=== PATIENT | female | born 1985 | race Hispanic/Latino ===

== ENCOUNTER 2016-03-16 13:08 | Emergency (ER) | payer OTHER ==
[~2016-03-16] VITALS: Ht 162.6 cm; Wt 56.8 kg
[2016-03-16 13:12] VITALS: BP 101/65; PULSE 82; RESP 16; O2SAT 98
--- NOTE | 2016-03-16 13:55 | ED.REPORT ---
HPI-Preg Under 20 Weeks Date of Service Mar 16, 2016 ED Provider: Deion Godfrey MD Pt is a 6 week 30 y/o female presenting to the ED c/o lower abdominal cramping onset this morning. She c/o associated nausea, mild vaginal spotting ( less than a period), mild brown vaginal discharge. She denies fever, vomiting. Her last occurred although she had a tubal ligation and this time she became while using the Nuva Ring. This is her 4th . Her prior deliveries were uncomplicated. She has no abdominal surgeries. Nursing Notes Stated Complaint: POSSIBLY , CRAMPING & SPOTTING Chief Complaint: & Delivery Nursing Notes Reviewed: Yes Allergies: Coded Allergies: No Known Allergies (Verified Allergy, Unknown, 03/16/16) No Active Prescriptions or Reported Meds General Time Seen by Provider: 13:58 Chief Complaint Abdominal cramping Context: : Known 1st trim Hx Obtained From: Patient Arrived By: Walk-in Onset Occurred: 5 - 8 hours ago Symptom Duration: Since onset Progression Since Onset: Unchanged Location: : Abdomen lower Quality: Cramping Severity: Current: Mild Severity: Maximum: Mild Past Medical History Past Medical History , healthy Past Surgical History None Smoking History Never Smoker Social History Alcohol Use: Denies alcohol use Drug Use: Denies drug use Ambulatory Status Independent Review of Systems Constitutional: Denies: Chills, Fever GI: Reports: Abdominal pain, Nausea, Denies: Vomiting Female: Reports: Vaginal bleeding - abnl, Vaginal discharge Complete sys rev & neg: except as marked. Physical Exam Initial Vital Signs Vital Signs (First) Date Time Temp Pulse Resp B/P Pulse Ox O2 Delivery O2 Flow Rate FiO2 03/16/16 13:12 36.9 82 16 101/65 98 Room Air Initial VS: Reviewed, Vital signs normal Head / Eyes: Atraumatic, Normocephalic, PERRL ENT: Mucous membranes moist, Conjunctiva normal, No scleral icterus Neck: Supple, Full range of motion Respiratory: Breath sounds normal, Clear to auscultation, No respiratory distress Cardiovascular: Regular rate & rhythm, Heart sounds normal, Intact distal pulses Extremities: Vascular intact, Neuro intact, No swelling, No tenderness Skin: Warm, Dry, No cyanosis Neurologic: Alert, Oriented, Nonfocal Psychiatric: Mood/affect normal, Behavior normal, Normal thought content General/Constitutional: Awake, Alert, No acute distress, Cooperative, Not toxic appearing Abdomen: Atraumatic, Soft, No guarding, No rebound, No distention, No palpable mass Tenderness/Guarding/Rebound: Positive: Tender suprapubic (very mild) Female Genitourinary: Exam deferred Interpretation & Diagnostics Lab Results Interpretation Result Diagram: 03/16/16 1316 03/16/16 1316 Test 03/16/16 13:16 03/16/16 13:29 03/16/16 13:59 03/16/16 14:14 White Blood Count 7.3th/mm3 (3.8-10.1) Red Blood Count 4.15mil/mm3 (3.90-5.20) Hemoglobin 12.6g/dL (12.0-15.6) Hematocrit 36.7% (35.0-46.0) Mean Corpuscular Volume 88.4fL (81-100) Mean Corpuscular Hemoglobin 30.4pg (27.0-35.0) Mean Corpuscular Hemoglobin Concent 34.3% (32.0-37.0) Red Cell Distribution Width 12.5% (12.3-15.4) Platelet Count 199bil/L (150-400) Sodium Level 137mEq/L (134-144) Potassium Level 3.8mEq/L (3.5-5.2) Chloride Level 102mEq/L (97-108) Carbon Dioxide Level 21mmol/L (18-29) Blood Urea Nitrogen 11mg/dL (6-20) Creatinine 0.46mg/dL (0.57-1.00) Estimat Glomerular Filtration Rate 225mL/min (>59) Glucose Level 100mg/dL (60-99) Calcium Level 8.5mg/dL (8.5-10.1) Total Bilirubin 0.2mg/dL (0.0-1.2) Aspartate Amino Transf (AST/SGOT) 15U/L (0-50) Alanine Aminotransferase (ALT/SGPT) 10U/L (0-32) Alkaline Phosphatase 45U/L (25-150) Total Protein 6.5g/dL (6.4-8.4) Albumin 3.7g/dL (3.4-5.0) HCG Beta Subunit 66224cMP/mL Hold Urine Received (Received) Urine Color Yellow (YELLOW) Urine Appearance Hazy (CLEAR,HAZY) Urine pH 7.0 (5.0-8.0) Urine Specific [place] 1.020 (1.003-1.035) Urine Protein Negativemg/dL (NEG,TRACE) Urine Glucose (UA) Negativemg/dL (NEGATIVE) Urine Ketones Negativemg/dL (NEGATIVE) Urine Occult Blood Negative (NEGATIVE) Urine Nitrite Negative (NEGATIVE) Urine Bilirubin Negative (NEGATIVE) Urine Urobilinogen Normalmg/dL (NORMAL) Urine Leukocyte Esterase Negative (NEGATIVE) Urine RBC 0-2/hpf (0-2) Urine WBC 0-5/hpf (0-5) Urine Epithelial Cells Occasional/hpf (NONE-MOD) Urine Crystals None seen (NONE SEEN) Urine Bacteria Few/hpf (NONE-FEW) Urine Hyaline Casts None/lpf (NONE) Urine Granular Casts None seen (NONE SEEN) Urine Waxy Casts None seen (NONE SEEN) Urine Red Blood Cell Casts None seen (NONE SEEN) Urine White Blood Cell Casts None seen (NONE SEEN) Urine Mucus None seen (None Seen) Urine Trichomonas None seen (NONE SEEN) Urine Yeast None (NONE SEEN) Urinalysis Comment None Urine Culture Reflexed Not indicated Hold Quevedo Top Tube Received (Received) US Focused OB IMPRESSION: 7 week 6 day single living intrauterine gestation. Dictated by: Kelechi Walker RRA Interpreted: Chayito Naylor MD on 03/16/2016 at 16:27 Transcribed by: NELLIE on 03/16/2016 at 16:28 Exam Performed by: Allied health pract Exam Type: Diagnostic Exam Interpreted by: Radiologist Re-Eval/Medical Decision Med Decision/Clinical Course 30-year-old tubal 1, presents about six weeks with some crampy discomfort and spotty bleeding. Her hCG is 84,000, sufficient for ultrasound examination, and she proves to have an IUP without any abnormality noted. There is no evidence of ectopic at this time. Her bleeding is fairly minimal at worst. She is discharged now for follow-up with her OB provider. Rest, pelvic rest, hydration discussed. Re-Evaluation/Progress : Time of Eval: 16:52 Re-Evaluation/Progress Note: Pt rechecked. Discussed lab and imaging results and possibility for misscarriage to still occur. Informed pt of plan for treatment. Pt understands and agrees with plan for treatment. F/U instructions and RTER warnings given. All questions addressed. Counseled Regarding: Diagnosis, Lab results, Need for follow-up, When/why to return to ED Discharge & Departure Primary Impression: Threatened miscarriage Disposition: Home Discharge Condition All VS Reviewed: Yes Condition: Stable Patient Instructions: Threatened Miscarriage (ED) Additional Instructions: The appears normal at this point. This is no guarantee that things will remain so, but there is no evidence of ectopic , and no abnormality seen. Bleeding early in is actually quite common, and does not necessarily mean you are going to lose the . Drink plenty of fluids and stay hydrated. Rest as much as possible, and pelvic rest for the next 10-14 days, the no sex, no tampons or douches. Follow-up with your doctor in your OB practitioner. Return if heavy bleeding or other new symptoms occur. Referrals: Neal Avilez MD (PCP) Scribe Attestation Portions of this note were transcribed by Dre Farris. I, Dr. Godfrey personally performed the history, physical exam and medical decision-making; I reviewed and confirmed the accuracy of the information in the transcribed note. Signed by Anthony Perla, 03/16/16 - 1413 copies to: Neal Avilez MD, Christopher W MD Mar 16, 2016 13:55 DRE FARRIS Mar 16, 2016 14:00
[2016-03-16 14:18] LABS: Mean Corpuscular Hemoglobin 30.4 pg (27.0-35.0); Mean Corpuscular Volume 88.4 fL (81-100)
[2016-03-16 14:23] LABS: APPEARANCE,URINE HAZY (CLEAR,HAZY); COLOR,URINE YELLOW (YELLOW); OCCULT BLOOD,URINE NEGATIVE (NEGATIVE); UROBILINOGEN,URINE NORMAL (NORMAL)
--- NOTE | 2016-03-16 16:28 | DRSVH ---
PROCEDURE: US OB<14 WKS+OB TRANSVAG INDICATIONS: 84k hcg, prior ectopic OUTSIDE/PRIOR DATING DATA: Last menstrual period (LMP): 01/27/16. LMP-based estimated date of delivery (SONYA): 11/02/16. First dating scan (date and location): 03/16/16. Estimated date of delivery (SONYA) from first dating scan: 10/27/16. TECHNIQUE: Real-time scanning was performed of the fetus and maternal pelvic organs, with image documentation. Endovaginal scanning was also performed to better visualize the fetus and maternal ovaries. COMPARISON: None. FINDINGS: Embryo: OB-VEHICLE TECHNICIAN Ultrasound Procedure Report Early Gestation [facility] [place] Rump Length: 1.55 cm Gestational Age (CRL): 7 weeks, 6 days Summary Fetus Summary Heart Rate: 163 bpm Comments: A normal yolk sac is noted. No perigestational bleeds. Measurement variability in dating: +/- 4 weeks by LMP, +/- 7 days by mean sac diameter (use before 6 weeks gestation if crown-rump length not able to be measured), +/- 5 days by crown-rump length (6-12 weeks gestation). Maternal organs: Ovaries within normal limits and no adnexal masses seen. Limited images through th e kidneys demonstrate no hydronephrosis. IMPRESSION: 7 week 6 day single living intrauterine gestation. Dictated by: Kelechi Walker RRA Interpreted: Chayito Naylor MD on 03/16/2016 at 16:27 Transcribed by: NELLIE on 03/16/2016 at 16:28 Approved by: Chayito Naylor MD, PhD on 03/16/2016 at 17:26
== END 2016-03-16 16:54 | disposition home or self-care (01) ==
LOC: SED 13:08
DX: O20.0 Threatened abortion (principal); Z3A.01 Less than 8 weeks gestation of pregnancy

== ENCOUNTER 2016-10-20 09:00 | Inpatient (IN) | payer OTHER ==
[~2016-10-20] VITALS: Ht 162.6 cm; Wt 63.5 kg
[2016-10-20] MEDS: Lactated Ringer's 1,000 ML IV SCH ×2 (09:23→17:23)
[2016-10-20] MEDS ORDERED: Methylergonovine 0.2 mg/mL Inj IM PRN ×2 (09:25)
[2016-10-20] MEDS ORDERED: Benzocaine (Dermoplast) 20% 60 Gm Spray TOPICAL PRN (09:25)
[2016-10-20] MEDS ORDERED: Hemorrhage Kit, Post Partum XX ONE ×2 (09:25)
[2016-10-20] MEDS ORDERED: Measles-Mumps-Rubella Vaccine 0.5 mL Inj SUBQ ONE (09:25)
[2016-10-20] MEDS ORDERED: Carboprost 250 mCg/mL Inj IM PRN ×2 (09:25)
[2016-10-20] MEDS ORDERED: LANOlin HPA 7 Gm Ointment TOPICAL PRN (09:25)
[2016-10-20] MEDS ORDERED: Oxytocin 10 Unit/mL Inj IM PRN ×2 (09:25)
[2016-10-20] MEDS ORDERED: Witch Hazel-Glycerin Pads TOPICAL PRN (09:25)
--- NOTE | 2016-10-20 09:35 | PCM.HPOB ---
Subjective Date of Service: Oct 20, 2016 Referring Provider: Admitting Physician: Luis Manuel Greene MD Primary Care Physician: Neal Avilez MD Attending Physician: Luis Manuel Greene MD Chief Complaint Active labor, SROM History of Present History of Present Illness Patient is a 31 y.o. F at 39 weeks SONYA [facility] and contractions. At initial assessment patient noted to be in active labor at complete dilation, 100 % effacement. Patient transferred to room and began pushing with contractions. Past Medical History Obstetrical History: one spontaneous Three previous pregnancies delivered Histotry of UTI in GBS negative Rubella non immune Gynecologic History: UTI in pregnancuy Hep C neg Hep B no History of STI Medical History: History of pyelonephritis UTI in Surgical History: No past surgeries Social History: Lives with and children No history of drug use No tobacco use No alcohol use Hx Tobacco Use: No Smoking Status: Never Smoker Hx Alcohol Use: No Hx Substance Use: No Past Family History Family History No family history of cancer or heart disease Genetic Screening/Counseling Genetic Screening/Counseling: Negative Review of Systems Constitutional: Y: Change of appitite Eyes: Denies: Blurred Vision Cardiovascular: Denies: Chest Pain, Edema, Palpitations Respiratory: Denies: Cough, Pleuritic Chest Pain Gastrointestinal: Denies: Abdominal Pain Genitourinary: Denies: Dysuria, Hematuria Musculoskeletal: Denies: Redness Skin: Denies: Bruising, Jaundice Psychologic: Denies: Agitation Medications Home medications vitamins Allergy Coded Allergies: No Known Allergies (Verified Allergy, Unknown, 03/16/16) Exam Vital Signs Exam Category 1 tracing FHR 146-160 Good accelerations with contractions Constitutional: Well-developed, Well-nourished, Normal habitus HEENT: Atraumatic, PERRLA, EOMI Lungs: Clear to Auscultation, Normal Air Movement Heart: Regular Rate/Rhythm, Normal S1, Normal S2, No Murmurs/Rubs/Gallops Fundus consistent with gestational age Abdomen: Gravid Extremities: Pulses Palpable x4, Warm Neurological/Psychiatric: Alert, Oriented X3 Neuro: Grossly Neurologically Intact Labs/Diagnostics Labs O positive Ab screen negative HCT 34.8 HGb 11.8 Varicella immune Rubella non immune UA positive UTI hep b neg Hep C neg HIV neg G/C neg Maternal Blood Type: O Hx Rho(D) Immune Globulin: No Group B Strep Results: Negative Previous Infant with GBS: No Rubella: Non-Immune Additional Information need MMR post OB Intrapartum Assessment/Plan Assessment Admit to FBC for expectant Diet NPO Advance as tolerated post Post hemorrhage kit ordered and in place MMR post Ibuprofen 800 mg Q6 PO Hydrocodone 5-325mg Q6 PO PRN pain Pain Evaluation: Adequate Pain Control Post plan: Continue routine post care Attending Statement The patient was seen and examined together with Dr. Bubba Brantley DO on 2016 and I agree with the history, exam and plan as outlined in the note above. BUBBA BRANTLEY DO Oct 20, 2016 09:35 Luis Manuel Greene MD Oct 24, 2016 08:09
--- NOTE | 2016-10-20 09:58 | PCM.OBVAG ---
Vaginal Delivery Date of Service Oct 20, 2016 Pre Operative Diagnosis Pre Operative Diagnosis active labor at 39 weeks Post Operative Diagnosis Post Operative Diagnosis s/p Procedure Obstetical Procedure: Normal Spontaneous Vaginal Delivery Tapper Balance Wheel Screw Hole/Turbine Attendant Provider and Turbine Attendant: Dr. Brar Turbine Attendant Dr. East Indication for Procedure Indication for Procedure Active labor at 39 weeks gestation Spontaneous rupture of membranes at time of presentation Induction: Active labor Findings Findings: Living female, three vessel chord, intact placenta no lacerations Obstetrical Findings: Cord (3 Vessel), 1 minute (9), 5 minutes (9) , Placenta (Intact/Normal) Procedure Details Procedure Details Patient [id number] to [facility] at 39 weeks gestation with SROM in active labor, category 1 tracings. Initial exam patient noted to be fully dilated 10 cm, 100 % effacement, at 0 station strong contraction every 2 minutes. patient brought back to room to begin pushing. After two cycles of pushing fetus noted to be at minus 2 station with passage of Meconium, inpatient manager life sciences notified and present for delivery Third cycle fetus crowned position noted to be KIESHA. Anterior shoulder delivered without difficulty, no dystocia Posterior shoulder delivered without difficulty No nuchal chord, body chord noted on delivery of body noted to have good tone, pink color, strong cry, at one minute 9 Delayed chord clamping at 1 minute, Intact placenta delivered without compilation, placenta noted to have three vessel chord, no sample for pathology sent EBl 300, superficial perennial laceration noted to be hemostatic Chord blood sent for analysis Specimen Specimens: Cord gas/pH Blood Loss & Administration Estimated Blood Loss: 300 Post Procedure Plan Post Procedure Plan Colase 100 mg BID Ibuprofen 800 mg Q6 PO PRN pain Hydrocodone 5-325 PO Q6 for pain Diet advance as tolerated Vitals Q6 CBC order AM OB hemorrhage kit ordered and in place likely discharge 24 hours post Post delivery Condition: Mom stable, Baby stable to nursery Attending Statement I was present for the entire procedure and assisted Dr. East as needed and agree with the above documentation. LEEANN EAST DO Oct 20, 2016 09:58 Luis Manuel Greene MD Oct 24, 2016 08:11
[2016-10-20] MEDS ORDERED: Ascorbic Acid 500 mg Tablet PO SCH (17:30)
[2016-10-21] MEDS: Lactated Ringer's 1,000 ML IV SCH (01:23)
[2016-10-21 09:16] LABS: BASOPHILS % (AUTO) 0.1 % (0-3); EOSINOPHILS % (AUTO) 1.1 % (0-5); Mean Corpuscular Hemoglobin 32.3 pg (27.0-35.0); Mean Corpuscular Volume 91.5 fL (81-100); NEUTROPHILS % (AUTO) 70.4 % (40-74); Platelet Count 139 bil/L (150-400)
--- NOTE | 2016-10-21 09:56 | PCM.DIOB ---
Obstetrical Disch Instruction Date of Service: Oct 21, 2016 Dates of Hospitalization Date of Hospital Admission Oct 20, 2016 at 09:00 Providers Admitting Physician: Luis Manuel Greene MD Primary Care Physician: Neal Avilez MD Attending Physician: Luis Manuel Greene MD Discharge Diagnosis Discharge Diagnosis PPD1 Problems: Diet Discharge Diet: No restrictions Activity Discharge Activity-General: Pelvic Rest for 6 weeks, Try not to overdue, Be up and about, Balance rest and activity, No lifting >15 pounds for 2 weeks Dressing and Incisional Care Hygiene: May shower, NO bathtub, hot tub or whirlpool Additional Instructions Discharge Instructions Please call office or go to ER for evaluation if heavy vaginal bleeding, severe abdominal pain, foul smelling discharge, fever more than 100.4 or short of breath. Follow Up Plan Follow Up Plan 6 weeks in office Follow-up appointment: Weeks (6) Call your provider for: Fever or Chills, Shortness of breath, Heavy vaginal bleeding, Epigastric pain, Excessive constipation, Vaginal discomfort, Red painful breasts Nimco Russell MD Oct 21, 2016 09:56
[2016-10-21] MEDS ORDERED: IBUP800T28 PO (09:58)
[2016-10-21] MEDS ORDERED: DOCU-41 PO (09:58)
--- NOTE | 2016-10-21 10:03 | PCM.DC.OB ---
Obstetrical Discharge Summary Date of Service Oct 21, 2016 Date of hospital admission Oct 20, 2016 at 09:00 Date of Discharge: Oct 21, 2016 Providers Admitting Physician: Luis Manuel Greene MD Primary Care Physician: Neal Avilez MD Attending Physician: Luis Manuel Greene MD Diagnosis at Time of Discharge PPD1 Problems: Brief History and Physical: Patient is a 31 y.o. F at 39 weeks SONYA 10[facility]/16[facility] and contractions. At initial assessment patient noted to be in active labor at complete dilation, 100 % effacement. Patient transferred to room and began pushing with contractions. Hospital Course: , not complicated. Recovered well after delivery Docusate Sodium (Colace) 100 Mg Capsule 100 MG PO DAILY Prescribed by: NIMCO LAYNE MD Ibuprofen (Ibuprofen) 800 Mg Tablet 800 MG PO Q6H PRN PRN For Pain Prescribed by: NIMCO LAYNE MD Discharge Medications: motrin 800mg bid po prn colace 100mg qd prn Disposition home Follow-up plan 6 weeks after delivery at office Discharge Diet: No restrictions Discharge Activity-General: Pelvic Rest for 6 weeks, Pelvic Rest, Try not to overdue, Be up and about, Balance rest and activity, No lifting >15 pounds for 2 weeks Patient instructions Call office or go to ER if heavy vaginal bleeding, severe abdominal pain, foul smelling discharge or fever more than 100.4 Nimco Layne MD Oct 21, 2016 10:03
== END 2016-10-21 13:45 | disposition home or self-care (01) | DRG 775 ==
LOC: FBC 09:00
PROVIDERS: ADMIT Obstetrics & Gynecology; ATTEND Obstetrics & Gynecology
PROC: 10E0XZZ Delivery of Products of Conception, External Approach (ICD-10-PCS; principal; 2016-10-20)
DX: O80 Encounter for full-term uncomplicated delivery (principal); Z3A.39 39 weeks gestation of pregnancy; Z37.0 Single live birth